=== PATIENT | female | born 1995 | race Caucasian/White ===

== ENCOUNTER 2018-03-26 20:19 | Outpatient (CLI) | END 2018-03-26 22:43 | disposition home or self-care (01) ==

== ENCOUNTER 2018-03-27 10:05 | Inpatient (IN) | END 2018-03-31 15:00 | disposition home or self-care (01) | DRG 766 ==

== ENCOUNTER 2018-05-31 15:00 | Emergency (ER) | END 2018-05-31 18:06 | disposition home or self-care (01) ==